=== PATIENT | male | born 1985 | race Caucasian/White ===

== ENCOUNTER 2020-02-07 06:45 | Emergency (ER) | payer SELFPAY ==
[~2020-02-07] VITALS: Ht 180.3 cm; Wt 104.3 kg
[2020-02-07 06:55] VITALS: BP 153/98
--- NOTE | 2020-02-07 07:01 | NUR ---
DR RILEY AT BEDSIDE FOR EVAL
[2020-02-07] MEDS ORDERED: TDAP [DIPH/PERTUSSIS/TET] 0.5 ML VIAL IM ONE ×2 (07:06→07:30)
== END 2020-02-07 07:15 | disposition home or self-care (01) ==
LOC: ER 06:45
DX: T81.49XA Infection following a procedure, other surgical site, initial encounter (principal); F90.9 Attention-deficit hyperactivity disorder, unspecified type
CPT/HCPCS: 90715